=== PATIENT | male | born 1985 | race Caucasian/White ===

== ENCOUNTER → 2024-12-03 11:25 | Outpatient (CLI) | payer OTHER, SELFPAY ==
--- NOTE | 2024-12-03 11:26 | DI.US.S_ITS ---
PROCEDURE: US SCROTUM INDICATIONS: LEFT TESTICULAR AND GROIN PAIN TECHNIQUE: Real-time scanning was performed of the scrotum and testicles, with image documentation. Color and pulse Doppler interrogation was performed of both testicles. COMPARISON: None. FINDINGS: Right: Testicle is normal in size, and homogenous in echotexture. Right scrotal ronna measures 4 mm. Epididymis is normal in overall size and morphology. No hydrocele or varicoceles. Overlying scrotal skin is normal in thickness. Small epididymal head cyst measuring 3 mm. Left: Testicle is normal in size, and homogeneous in echotexture. Epididymis is normal in overall size and morphology. No hydrocele or varicoceles. Overlying scrotal skin is normal in thickness. Small epididymal head cyst measuring 2 mm. Doppler: Color and pulse Doppler demonstrate normal and symmetric arterial flow in both testicles. No evidence of left groin hernia. IMPRESSION: No acute torsion. No altered testicular or epididymal vascularity. Small right scrotal ronna and bilateral small epididymal head cysts. No discrete hernia identified in the left groin. Dictated by: Prudencio Solomon M.D. on 12/03/2024 at 13:24 Approved by: Prudencio Solomon M.D. on 12/03/2024 at 13:25
== END ==
PROVIDERS: PCP Physician Assistant; Referring Provider Physician Assistant; Visit Provider Physician Assistant
DX: N50.3 Cyst of epididymis (principal); N50.812 Left testicular pain; R10.32 Left lower quadrant pain
CPT/HCPCS: 76870

== ENCOUNTER → 2025-02-22 10:51 | Outpatient (CLI) | payer BC, SELFPAY ==
[2025-02-22 20:35] LABS: Add Manual Diff / Slide Review NO; Hematocrit 43.7 % (41-53); Hemoglobin 15.3 g/dL (13.5-17.5); Lymphocytes Absolute Auto 1800 /uL (1100-4500); Mean Corpuscular HGB Conc 35.0 % (30-36); Mean Corpuscular Hemoglobin 30.6 PG (26-34); Mean Corpuscular Volume 87.4 fL (80-100); Platelet Count 183 X10^3/uL (150-400)
[2025-02-22 20:56] LABS: Alanine Aminotransferase 28 IU/L (<50); Albumin 4.9 g/dL (3.5-5.0); Albumin Globulin Ratio 1.8 (1.0-2.8); Alkaline Phosphatase 53 U/L (38-126); Blood Urea Nitrogen 11 mg/dL (9-20); Calcium 9.5 mg/dL (8.4-10.2); Carbon Dioxide 27 mmol/L (22-32); Chloride 102 mmol/L (98-107); Cholesterol 242 mg/dL (140-199); Estimated Glomerular Filt Rate > 60 mL/min (>60); Globulin 2.8 g/dL (1.7-4.1); Glucose 98 mg/dL (70-99); HDL Cholesterol 59 mg/dL (40-60); HEMOLYSIS 16 (0-50); Sodium 138 mmol/L (137-145); Total Protein 7.7 g/dL (6.3-8.2); Triglycerides 139 mg/dL (35-150)
[2025-02-22 20:57] LABS: NT-proBNP (BNP-Adult 18+) < 20 pg/mL (<125)
[2025-02-22 21:06] LABS: Potassium 4.2 mmol/L (3.4-5.1)
[2025-02-22 21:16] LABS: TSH w/ Reflex to FT4 1.42 uIU/mL (0.47-4.68)
[2025-02-23 17:17] LABS: HIV 1 & 2 Ab/Ag 4th Gen Combo NEGATIVE (NEGATIVE); Hep C Virus Ab w/Reflex Quant NEGATIVE s/c (NEGATIVE)
== END ==
PROVIDERS: PCP Physician Assistant; Visit Provider Physician Assistant
DX: Z13.6 Encounter for screening for cardiovascular disorders (principal); Z13.29 Encounter for screening for other suspected endocrine disorder; Z80.8 Family history of malignant neoplasm of other organs or systems; Z11.4 Encounter for screening for human immunodeficiency virus [HIV]; R06.02 Shortness of breath; X58.XXXA Exposure to other specified factors, initial encounter; Z80.7 Family history of other malignant neoplasms of lymphoid, hematopoietic and related tissues; Z82.49 Family history of ischemic heart disease and other diseases of the circulatory system; Z11.59 Encounter for screening for other viral diseases
CPT/HCPCS: 80053; 80061; 83880; 84443; 85025; 85651; 86803; 87389

== ENCOUNTER → 2025-05-18 09:36 | Outpatient (CLI) | payer BC, SELFPAY ==
--- NOTE | 2025-05-18 09:37 | DI.CT.S_ITS ---
PROCEDURE: CT CHEST HIGH RESOLUTION INDICATIONS: Abnl. CXR,intermittent SOB. Works w/magdiel. TECHNIQUE: Noncontrast 1.0 and 5.0 mm thick contiguous axial sections from the pulmonary apex to the posterior costophrenic angles, with 7 mm thick coronal and sagittal MIP reformats. 1 mm thick dynamic expiratory images acquired through the upper, mid, and lower lungs. 1.0 mm thick axial sections acquired from the anni to the posterior costophrenic angles in the prone end-inspiration position. For radiation dose reduction, the following was used: automated exposure control, adjustment of mA and/or kV according to patient size. COMPARISON: [facility] ([facility]), CR, XR CHEST 2V, 02/22/2025, 10:51. FINDINGS: Image quality: Diagnostic Lungs and pleura: Mild scattered areas of air trapping, likely within physiologic limits. No pleural effusions or dense airspace disease. Bilateral lung apex scarring, with nodular areas, for example at the left lung apex image 49 measuring 8 mm. No peripheral reticulation. Other small pulmonary nodules are also seen, for example in the right middle lobe measuring 6 mm. No significant changes with prone imaging. Mediastinum, heart, and esophagus: Normal heart size. No enlarged lymph nodes by size criteria. Unremarkable CT appearance of the esophagus. Chest wall and thyroid: Unremarkable Upper abdomen: No significant abnormality on these noncontrast images. Bones: There are degenerative changes. No aggressive appearing osseous abnormality. IMPRESSION: Biapical areas of presumed lung scarring, some which appear nodular, for example at the left lung apex measuring up to 8 mm. Other small pulmonary nodules are present, for example in the right middle lobe measuring 6 mm. A 3 to 6-month follow-up chest CT is recommended (high-resolution protocol not necessary for nodule follow-up). No reticulation to suggest fibrotic changes of the lung parenchyma elsewhere. No airspace consolidation or pleural effusion. Other findings above. Dictated by: Prudencio Solomon M.D. on 05/18/2025 at 10:32 Approved by: Prudencio Solomon M.D. on 05/18/2025 at 10:38
== END ==
LOC: CT 09:37
PROVIDERS: PCP Physician Assistant; Referring Provider Physician Assistant; Visit Provider Physician Assistant
DX: R93.89 Abnormal findings on diagnostic imaging of other specified body structures (principal); R06.02 Shortness of breath; R91.8 Other nonspecific abnormal finding of lung field
CPT/HCPCS: 71250